=== PATIENT | male | born 1955 | race Caucasian/White ===

== ENCOUNTER 2017-01-03 09:43 | Emergency (ER) | payer SELFPAY ==
[2017-01-03] MEDS ORDERED: LIDOCAINE 1% 50 ML VIAL INJ ONE (09:58)
--- NOTE | 2017-01-03 10:22 | RAD ---
EXAM DESCRIPTION: Chest,1 View CLINICAL HISTORY: SOB COMPARISON: None available TECHNIQUE: AP portable chest FINDINGS: A large right pleural effusion is observed. Bilateral basilar atelectatic type infiltrate is observed. The heart is within range of normal. IMPRESSION: A large right pleural effusion is demonstrated. Electronically signed by: Markell Akers MD 01/03/2017 10:20 AM CDT
[2017-01-03] MEDS ORDERED: CHLORHEXIDINE GLUCONATE 4 % 15 ML UD TOP ONE (10:35)
[2017-01-03] MEDS ORDERED: ALUMINUM & MAGNESIUM HYDROXIDE 30 ML UD PO ONE (11:17)
[2017-01-03] MEDS ORDERED: IPRATROPIUM/ALBUTEROL 3 ML VIAL NEB ONE (11:22)
[2017-01-03] MEDS ORDERED: PIPERACILLIN/TAZOBACTAM 3.375 GM in SODIUM CHLORIDE 0.9% 100ML 100 ML IVPB ONE (11:25)
--- NOTE | 2017-01-03 11:29 | CT ---
EXAM DESCRIPTION: Chest w/o Contrast CLINICAL HISTORY: 61 years Male, resp distress, large effusion on right COMPARISON: Chest x-ray dated the same date TECHNIQUE: Transaxial images were obtained without intravenous contrast media. Sagittal and coronal reconstruction was performed.This exam was performed according to our departmental dose-optimization program, which includes automated exposure control, adjustment of the mA and/or kV according to patient size and/or use of iterative reconstruction technique. FINDINGS: The thyroid is normal in appearance. No pathologic axillary adenopathy is observed. No pathologic hilar or mediastinal adenopathy is detected. A right-sided chest tube is noted in place. A moderate sized 20-30% right-sided pneumothorax is observed. Right lung infiltrate/atelectasis is observed in the upper and lower lobes. There is relative sparing of the middle lobe. Minimal left basilar atelectatic type lung disease is observed. A small posterior right pleural effusion is noted. There is some kinking of the chest tube. The kink is observed posteriorly. No adrenal masses are detected. A small amount of subcutaneous air is observed along the track of the chest tube. The liver and spleen are unremarkable. IMPRESSION: 1. A right-sided chest tube is observed. A persistent 20/30% right-sided pneumothorax is observed. Some kinking of the tube is observed posteriorly. 2. Persistent right pleural effusion. 3. Consolidation is observed most pronounced in the right lower lobe. There is also some parenchymal lung disease in the right upper lobe and left lung base. Electronically signed by: Markell Akers MD 01/03/2017 11:28 AM CDT
[2017-01-03] MEDS ORDERED: SODIUM CHLORIDE 0.9% 100ML 100 ML IVPB ONE (11:30)
[2017-01-03] MEDS ORDERED: PIPERACILLIN/TAZOBACTAM 3.375 GM VIAL IVPB ONE (11:30)
[2017-01-03] MEDS ORDERED: SODIUM CHLORIDE 0.9% 1000ML 1,000 ML IVS ONE (11:45)
--- NOTE | 2017-01-03 11:45 | RAD ---
EXAM DESCRIPTION: Chest,1 View CLINICAL HISTORY: s/p chest tube repositioning COMPARISON: January 03, 2017 at 9:45 AM FINDINGS: There is a chest tube in the mid and lower right lung with a small right-sided pneumothorax. No contralateral mediastinal shift. Atelectasis and/or consolidation is noted in both lung bases, worse in the right side. There may be a small right-sided effusion. No definite left-sided effusion. No acute fracture is identified. IMPRESSION: Chest tube in the mid and lower right lung with a persistent small right-sided pneumothorax. No tension pneumothorax. Atelectasis versus pneumonia or edema in both lung bases, worse on the right side, including a possible small right-sided effusion. Electronically signed by: Melo Zafar MD 01/03/2017 11:43 AM CDT Workstation: [facility] [email or web address]
--- NOTE | 2017-01-03 12:26 | ED.PDOC ---
History of Present Illness - General Chief Complaint: Respiratory Problem Stated Complaint: shortness of breath Time Seen by Provider: 01/03/17 09:49 Source: patient, EMS notes reviewed, family - History of Present Illness Initial Comments: the patient is a 61-year-old male presenting to the emergency room due to chest pain, shortness of breath and altered mental status. 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 Upon arrival by EMS, the patient was confused and was unable to give any good recent history. He was slurring his speech but moving all his extremities. His oxygen saturations were between 78 and 82% on room air. He did require a nonrebreather to get his oxygen saturations close to 90%. He was tachypnea. He was mildly hypotensive. Mildly tachycardic. For the first hour after arrival here we were working under the assumption that this dino acute thing that it just started today. After that time frame family arrived and gave us more information that the patient actually had symptoms starting 1 week ago. Apparently the patient developed acute onset rightlower chest pain 6 days ago while working on a fence. No definite trauma. 2 days later he developed diaphoresis and some mild confusion additionally. His family has been giving him muscle relaxers and some hydrocodone to help with the discomfort. He had not wanted to come to the emergency room. He has not been eating or drinking well. He is apparently significantly more confused today than he was yesterday. No previous lung problems. No productive cough. No documented fevers at home. The patient is in obviousdistress currently. Chest x-ray was obtained and a large amount of fluid was seen in the right chest cavity. Concern for a hemothorax acutely was present. A chest tube was placedfor diagnostic and treatment purposes given the respiratory distress and mild hypotension Implied consent was used for the chest tube placement as the patient was significantly alteredand no family was around to give consent. This is an emergent procedure. Chest wall is clean with alcohol swabs. 1% Xylocaine without epinephrine was used 10 cc for a localized anesthetic on the right. sterile prep and drape were performed with Betadine. 15 blade scalpel was used to make a skin incision approximately 1-1/4 inch long just superior and lateral to the level of the right nipple along the midaxillary line hemostats were used to dissect through the subcutaneous tissue down to the rib cage. Cardiac hemostats were used to bluntly enter the chest cavity. Approximately 700-800 cc of serous fluid was obtained. Chest tube was initially placed to 21 cm without any resistance 1-0 Prolene was used for suturing the chest tube in place and Vaseline gauze was used around the entry site secure a air seal. Tape was applied over this. The patient was hooked up to suction. CT scan was performed immediately after for further evaluation of chest pathology and it was noted that there was kinking in the chest tube posteriorly. Due to this we took down the dressing sterilely and backed the chest tube out approximately 5 cm to 16 cm at the skin, while rolling it to release the Kink. additional serous fluid was obtained in doing this. Since placement of the chest tube and additional 130 cc of serous and serosanguineous fluid has been obtained. Culture and cytology are being sent on this. Estimated blood loss less than 10 cc. Repeat chest x-ray was performed after repositioning of the chest tube. There is a residual 20-30% pneumothorax still at this time. The patient is resting much more comfortably. Timing/Duration: 1 week Severity: severe Improving Factors: nothing Worsening Factors: movement Associated Symptoms: chest pain, diaphoresis, loss of appetite, malaise, shortness of breath, weakness Allergies/Adverse Reactions: Allergies NO KNOWN ALLERGY Allergy (Verified 01/03/17 09:55) Home Medications: Ambulatory Orders NK [NK] 01/03/17 Review of Systems - Review of Systems Constitutional: States: diaphoresis, malaise, weakness EENTM: States: no symptoms reported Respiratory: States: short of breath Cardiology: States: chest pain Gastrointestinal/Abdominal: States: nausea - mild Genitourinary: States: no symptoms reported Musculoskeletal: States: back pain Skin: States: no symptoms reported Neurological: States: other - confusion Endocrine: States: no symptoms reported All other Systems: No Change from Baseline Past Medical History (General) - Patient Medical History Hx Asthma: No Hx of COPD: No Hx Cardiac Disorders: No Surgical History: other - Vaccination History Hx Tetanus, Diphtheria Vaccination: Yes Hx Influenza Vaccination: Yes Hx Pneumococcal Vaccination: No - Social History Hx Tobacco Use: No Hx Chewing Tobacco Use: Yes Hx Alcohol Use: No Hx Substance Use: No Hx Substance Use Treatment: No Hx Depression: No - Activities of Daily Living Hospice Agency (if applicable):: None - Female History Patient is a Female of Child Bearing Age (10 -59 yrs old): No Patient : No Family Medical History - Family History Mother Family History: Unknown Physical Exam - Physical Exam General Appearance: Lethargic, Obvious distress, Ill Appearing, Other - pale and mildly diaphoretic Eye Exam: bilateral normal Ears, Nose, Throat: hearing grossly normal, normal ENT inspection, normal pharynx Neck: non-tender, full range of motion Respiratory: chest non-tender, other - decreased breath sounds to the right base. Rales left base. Increased work of breathing. Significant accessory muscle use. Cardiovascular/Chest: normal peripheral pulses, regular rate, rhythm, no edema Peripheral Pulses: radial,right: 2+, radial,left: 2+, dorsalis pedis,right: 2+, dorsalis pedis,left: 2+ Gastrointestinal/Abdominal: non tender, soft Rectal Exam: deferred Back Exam: normal inspection, no CVA tenderness Extremity: normal range of motion, non-tender, normal inspection, no pedal edema , normal capillary refill Neurologic: other - the patient is very drowsy and slurs his speech. He knows wwho he is and what hospital he is at. He knows he is having chest pain. He gives a very poor history for this chest pain. He is uncertain of his past medical problems. He does recognize family members. He moves all extremities. He is very weak. Skin Exam: diaphoresis, pallor Comments: Vital Signs - 24 hr 01/03/17 01/03/17 01/03/17 09:44 09:57 10:10 Temperature 99.5 F Pulse Rate [ 77 78 pulse ox] Respiratory 20 24 24 Rate Blood Pressure 108/70 117/73 [Left Arm] O2 Sat by Pulse 97 97 Oximetry 01/03/17 01/03/17 11:10 12:10 Temperature Pulse Rate [ 75 83 pulse ox] Respiratory 20 20 Rate Blood Pressure 116/71 121/64 [Left Arm] O2 Sat by Pulse 88 L 90 L Oximetry Progress - Progress Progress: 01/03/17 12:30 the patient is a 61-year-old male presenting with respiratory compromise and near failure from a large pleural effusion, with associated chest pain and altered mental status.. Source of the effusion is unknown at this time. CT scan of the chest that shows a consolidated processes. Blood culture and culture of the serous fluid have been performed. The patient is being placed on Zosyn. Chest tube placement and drainage of the effusion did help the respiratory distress significantly. He is still requiring 3-1/2 L by nasal cannula to keep his oxygen saturations above 90%, but significantly improved from the nonrebreather. He is breathing much more easily. Blood pressures have improved. The patient was unable to have IV contrast due to renal function. At this time I cannot rule out the possibility of a PE one week ago causing the above processes over the ensuing week. Additionally it is possible that the patient may have had a pneumothorax a week ago that has filled the space with serous fluid. The patient will be transferred for additional workup including lower extremity Dopplers and possibly a VQ scan. The patient has not received blood thinners at this time. The altered mental status is probably multifactorial related to hypoxia and medications received from his family over the last few days. it does appear to be improving some so far. He does have some acute renal failure and has received a little more than a liter of IV fluids here today. Culture and cytology are being performed on the serous fluid. 01/03/17 12:37 critical care time spent in not otherwise billable procedures 35 minutes - Results/Orders Results/Orders: Laboratory Results - last 24 hr 01/03/17 01/03/17 01/03/17 09:50 09:50 09:50 WBC 13.9 H RBC 4.46 L Hgb 13.3 L Hct 40.0 L MCV 89.8 MCH 29.8 MCHC 33.1 RDW 13.9 Plt Count 314 MPV 8.4 Absolute Neuts (auto) 11.70 H Absolute Lymphs (auto) 0.80 L Absolute Monos (auto) 1.10 H Absolute Eos (auto) 0.10 Absolute Basos (auto) 0.00 Neutrophils % 84.6 H Lymphocytes % 6.1 L Monocytes % 8.2 Eosinophils % 0.8 L Basophils % 0.3 PT 13.3 H INR 1.180 PTT (SP) 27.4 D-Dimer, Quantitative 572 H* Sodium 133 L Potassium 4.7 Chloride 101 Carbon Dioxide 22 Anion Gap 14.7 BUN 24 H Creatinine 1.99 H BUN/Creatinine Ratio 12.1 Random Glucose 184 H Serum Osmolality 275.2 Calcium 8.7 Magnesium 2.1 Total Bilirubin 0.9 AST 19 ALT 29 Alkaline Phosphatase 87 Creatine Kinase 81 CK-MB (CK-2) 2.9 CK-MB (CK-2) % Not Reportable Troponin I < 0.02 B-Natriuretic Peptide 36.2 Serum Total Protein 6.4 Albumin 2.7 L Globulin 3.7 H Albumin/Globulin Ratio 0.7 L Amylase 56 Lipase 56 H Urine Color Urine Appearance Urine pH Ur Specific [place] Urine Protein Urine Glucose (UA) Urine Ketones Urine Blood Urine Nitrite Urine Bilirubin Urine Urobilinogen Ur Leukocyte Esterase Urine RBC Urine WBC Ur Epithelial Cells Urine Bacteria Hyaline Casts Urine Mucus 01/03/17 10:09 WBC RBC Hgb Hct MCV MCH MCHC RDW Plt Count MPV Absolute Neuts (auto) Absolute Lymphs (auto) Absolute Monos (auto) Absolute Eos (auto) Absolute Basos (auto) Neutrophils % Lymphocytes % Monocytes % Eosinophils % Basophils % PT INR PTT (SP) D-Dimer, Quantitative Sodium Potassium Chloride Carbon Dioxide Anion Gap BUN Creatinine BUN/Creatinine Ratio Random Glucose Serum Osmolality Calcium Magnesium Total Bilirubin AST ALT Alkaline Phosphatase Creatine Kinase CK-MB (CK-2) CK-MB (CK-2) % Troponin I B-Natriuretic Peptide Serum Total Protein Albumin Globulin Albumin/Globulin Ratio Amylase Lipase Urine Color [place] Urine Appearance Sl cloudy Urine pH 5.5 Ur Specific [place] 1.020 Urine Protein 30 Urine Glucose (UA) Negative Urine Ketones 15 H Urine Blood Negative Urine Nitrite Negative Urine Bilirubin Moderate Urine Urobilinogen 1.0 Ur Leukocyte Esterase Negative Urine RBC 1-3 Urine WBC 1-3 Ur Epithelial Cells 0-1 Urine Bacteria Rare Hyaline Casts 1-3 Urine Mucus Moderate EKG shows normal sinus rhythm. No definite ST segment changes concerning for localized ischemia. Chest x-ray shows significant effusion on the right. Cannot rule out hemothorax initially. CT scan of the chest without contrast due to renal function shows consolidation of the right lower lobe right upper lobe and lower lobe infiltrates. Persistent 20-30% pneumothorax on the right. Chest tube was kinked posteriorly. ABG shows a PaO2 of 65 on 3 and half liter nasal cannula. PH is 7.38. PaCO2 is 37. Departure - Departure Clinical Impression: Respiratory distress, Pleural effusion Disposition: Transfer to Hospital Referrals: Gerald Cotton MD [Primary Care Provider] - 1-2 Weeks Home Medications: Ambulatory Orders NK [NK] 01/03/17
[2017-01-03 12:27] VITALS: O2SAT 90
[2017-01-03 13:27] VITALS: BP 113/60; TEMP 98.8
== END 2017-01-03 13:13 | disposition short-term general hospital (02) ==
LOC: ER 09:43
DX: J80 Acute respiratory distress syndrome (principal); J90 Pleural effusion, not elsewhere classified; R07.9 Chest pain, unspecified; R41.82 Altered mental status, unspecified; N17.9 Acute kidney failure, unspecified; R11.0 Nausea; I95.9 Hypotension, unspecified; Z87.891 Personal history of nicotine dependence
CPT/HCPCS: 36415; 71010; 71250; 80053; 81001; 82150; 82550; 82553; 83690; 83735; 83880; 84484; 85025; 85379; 85610; 85730; 87040; 87070; 93005; 94640; J2543; J7050; J7620